=== PATIENT | female | born 1980 | race Caucasian/White ===

== ENCOUNTER → 2017-12-13 13:59 | Outpatient (CLI) | payer BC, SELFPAY ==
[2017-12-21 13:39] LABS: HPV HC, High Risk Negative (Negative); HPV Reflexed? NOT INDICATED
== END ==
PROVIDERS: Visit Provider Obstetrics & Gynecology
DX: Z12.4 Encounter for screening for malignant neoplasm of cervix (principal)
CPT/HCPCS: 88175; G0145

== ENCOUNTER → 2018-12-15 11:50 | Outpatient (CLI) | payer OTHER, SELFPAY ==
[2013-08-06 07:07] VITALS: BMI 32.9
== END ==
PROVIDERS: Visit Provider Obstetrics & Gynecology
DX: Z12.4 Encounter for screening for malignant neoplasm of cervix (principal)

== ENCOUNTER 2019-09-30 13:17 | Emergency (ER) | payer OTHER, SELFPAY ==
[2019-09-30 13:18] VITALS: BP 124/79; PULSE 95; RESP 16; TEMP 36.4; O2SAT 100; BMI 33.6
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
[2019-09-30 14:02] VITALS: RESP 16
== END 2019-09-30 14:03 | disposition home or self-care (01) ==
LOC: ED 13:55
PROVIDERS: Emergency Provider Emergency Medicine
DX: S90.31XA Contusion of right foot, initial encounter (principal); S90.811A Abrasion, right foot, initial encounter; E66.9 Obesity, unspecified; V89.2XXA Person injured in unspecified motor-vehicle accident, traffic, initial encounter
CPT/HCPCS: 73630; 99284

== ENCOUNTER 2021-07-03 14:16 | Outpatient (CLI) | payer OTHER, SELFPAY ==
[2021-07-03 16:25] LABS: Thyroid Stim Hormone (TSH) 1.69 uIU/mL (0.358-3.74)
== END 2021-07-03 23:59 | disposition home or self-care (01) ==
LOC: WOBLAB 14:17
PROVIDERS: Visit Provider Student in an Organized Health Care Education/Training Program
DX: N92.5 Other specified irregular menstruation (principal)
CPT/HCPCS: 36415; 84443

== ENCOUNTER 2021-07-31 16:24 | Outpatient (CLI) | payer OTHER, SELFPAY ==
--- NOTE | 2021-07-31 | EMB_PTH ---
PATIENT: ROOSEVELT CANTOR LOC: [facility] U#:[id number] AGE/SX: 40/F ROOM: RE07/31/[address]: Dr. Ananya Carlos DO : 1980 BED: DIS: 07/31/2021 SPEC #: [id number] RECD: 07/31/21 10:40 STATUS: TOM EL #: [id number] EMILY: 07/31/21 00:[address]: Ananya Carlos DEPT: SURGICAL PATHOLOGY RECD BY: Pradeep Brito ENTERED: 08/01/21 10:41 SP TYPE: ENDOM BX/C JEFF DR: No Primary Care Phys Tissues: Endometrium, NOS Procedures: Surgery Specimen Level IV HEADER OPERATION: Endometrial biopsy PRE-OP DIAGNOSIS: Abnormal uterine and vaginal bleeding TISSUE SUBMITTED: Endometrial biopsy MICROSCOPIC DIAGNOSIS Endometrium, biopsy: Proliferative endometrium. Rare strips of benign superficial endocervix. AM:kemi 08/02/2021 MICROSCOPIC DESCRIPTION Slides are reviewed. GROSS DESCRIPTION Received in fixative is one container labeled with the patient's name and designated endometrial biopsy. The specimen consists of multiple irregular and elongated fragments of light to dark sadler soft tissue that in aggregate measure 2.2 x 2 x 0.2 cm. The specimen is totally submitted in one cassette. / AM:kemi 08/01/2021 TC:5 CPT: 68886
== END 2021-07-31 23:59 | disposition home or self-care (01) ==
LOC: WOBLAB 16:25
PROVIDERS: Visit Provider Student in an Organized Health Care Education/Training Program
DX: N93.9 Abnormal uterine and vaginal bleeding, unspecified (principal)
CPT/HCPCS: 88305

== ENCOUNTER 2022-03-08 08:22 | Day surgery (SDC) | payer SELFPAY ==
[2022-03-05 15:16] LABS: Hematocrit 39.6 % (37-47); Hemoglobin 13.1 g/dL (12.0-15.0); Mean Corp Hgb Conc 33.1 g/dL (32-36); Mean Corpuscular Hgb 29.2 pg (27.0-32.0); Mean Corpuscular Volume 88.4 fL (81-99); Mean Platelet Vol. 10.9 fl (6.2-12.0); Platelet Count 211 K/mm3 (150-450); RBC Distribution Width CV 12.7 % (11.6-14.6); RBC Distribution Width SD 41.3 fl (35.1-43.9); Red Blood Count 4.48 M/mm3 (4.2-5.4); White Blood Count 6.4 K/mm3 (4.4-11.0)
[2022-03-08] VITALS (10 sets, daily range): BP systolic 87–106; BP diastolic 61–75; PULSE 65–83; RESP 15–18; TEMP 36.2–36.9; O2SAT 96–100; BMI 24.9
--- NOTE | 2022-03-08 | OV_PTH ---
PATIENT: ROOSEVELT CANTOR LOC: [facility] U#:[id number] AGE/SX: 41/F ROOM: RE03/08/[address]: Dr. Ananya Carlos DO : 1980 BED: DIS: 03/08/2022 SPEC #: [id number] RECD: 03/08/22 14:27 STATUS: TOM EL #: [id number] EMILY: 03/08/22 00:[address]: Ananya Carlos DEPT: SURGICAL PATHOLOGY RECD BY: Pradeep Brito ENTERED: 03/09/22 08:56 SP TYPE: OVARY OTHR DR: No Primary Care Phys Tissues: Right ovary Procedures: Surgery Specimen Level IV HEADER OPERATION: Laparoscopic right oophorectomy and cystectomy, left ovarian PRE-OP DIAGNOSIS: Bilateral ovarian cysts TISSUE SUBMITTED: Right ovary and cyst wall, left ovarian cyst wall MICROSCOPIC DIAGNOSIS Right ovary and cyst, oophorectomy: Follicular and corpus luteal cysts. Left ovarian cyst wall, excision: Fragments of corpus luteal cyst. AM:kemi 03/12/2022 MICROSCOPIC DESCRIPTION Slides are reviewed. GROSS DESCRIPTION Received in fixative is one container labeled with the patient's name and designated left ovarian cyst wall, right ovarian cyst wall. The specimen consists of two fragments. One fragment consists of an open cystic structure measuring 5.5 x 3 x 1 cm. The cyst wall lining averages 0.2 cm in thickness. The external surface is inked in black ink. The specimen is serially sectioned and claims customer service representative sections are submitted in cassette 1. The second fragment consists of a smooth, glistening, sadler-white ovary measuring 4 x 3 x 2.2 cm and weighing 14.8 gm. The external surface is inked and the specimen is serially sectioned to reveal multiple cysts ranging in size from 0.2 to 1.2 cm and containing clear fluid. Hotel Desk Clerk sections from this ovary are submitted in cassettes 2-4. / AM:kemi 03/09/2022 TC:5 CPT: 25264 x2
--- NOTE | 2022-03-08 07:07 | PCM.HP.BLA ---
History and Physical Date of Admission: 03/08/22 HPI: Assessment/plan: 41-year-old plan for laparoscopic bilateral ovarian cystectomy for ovarian cysts. Denies headache, vision changes, chest pain or shortness of breath, nausea or vomiting, diarrhea or constipation, fevers or chills. Medical history: Denies Surgical history: Denies Family history: Denies, adopted Allergies: No known drug allergies Medications: Sprintec Social history: Denies tobacco, alcohol, drug use Review of system: Negative otherwise stated above Physical exam: BP 126/70, Weight 156 lb General: No acute distress HEENT: Normocephalic/atraumatic, PERRLA Cardiac: Regular rate and rhythm Lungs: Clear to auscultation bilaterally Abdomen: Soft, nontender, nondistended Extremities: No edema Musculoskeletal: Strength 5 out of 5 throughout all extremities Neurologic: Cranial nerves II through XII grossly intact, no focal deficits Assessment/plan: 41-year-old plan for laparoscopic bilateral ovarian cystectomy for ovarian cysts. All risk, benefits, terms discussed the patient. Risk include but are not limited to: Risk of bleeding to the point transfusion, infection, injury to surrounding tissue including bowel/bladder/major abdominal vessels, VTE, ICU admission. Patient aware and consented
[2022-03-08] MEDS: Lactated Ringers 1,000 ML 15 ML IV ×3 (08:35→12:47)
[2022-03-08 08:49] LABS: Internal QC Validated? YES +Cl - CLEAR BKGD; Pregnancy, Urine Negative Negative
--- NOTE | 2022-03-08 10:36 | OP.PCM_ITS ---
Report of Operation Date of Procedure: 03/08/22 Pre-Operative Diagnosis: Bilateral ovarian cysts Post-Operative Diagnosis: Bilateral ovarian cysts Surgery/Procedure Performed:: Laparoscopic left ovarian cystectomy, right oophorectomy Description of Surgical Findings:: Normal-appearing external genitalia. Moderate uterine descensus. Friable cervical ectropion. Normal-appearing bilateral fallopian tubes. Enlarged left ovary secondary to large fluid-filled ovarian cyst. Right ovary slightly enlarged with solid cyst encompassing entire ovary. Filmy adhesion colon to right abdominal sidewall. Type of Anesthesia: General Specimen's removed: Left ovarian cyst. Right ovary. Estimated Blood Loss (mL): 15 cc Fluids Replaced: 1500cc Description of Procedure: Indications/risk/benefits: 41-year-old female with persistent over the ovarian cyst bilaterally plan for laparoscopic ovarian cystectomies. All risk, benefits, alternatives were discussed with patient. Risk include but not limited to: Risk of bleeding twin transfusion, infection, injury to surrounding tissue including bowel/bladder/major abdominal vessels, VTE, ICU admission. Patient were consented. Procedure: Patient taken to the operating room placed under general anesthesia. Patient placed in the dorsal lithotomy position and prepped and draped in the usual sterile fashion. Pulliam catheter placed. Weighted speculum placed in posterior vagina and Willams retractor used to visualize cervix. Anterior lip of cervix grasped with single-tooth tenaculum. Cervix sequentially dilated and sounded to 9 cm. Uterine manipulator placed. Gloves were changed and attention turned to the anterior abdominal wall. 5 mm transverse infraumbilical incision made with scalpel and trocar placed under direct visualization. Right (5 mm) and left (8 mm) lower quadrant trochars placed under direct visualization after abdomen was insufflated. Inspection of abdominal cavity completed with findings above. Left ovary grasped and cyst incised and removed using LigaSure device. Drained clear yellow fluid. Cyst wall placed anterior to the uterus momentarily. Unable to separate remaining portion of cyst wall from ovarian tissue. Ovary hemostatic. Right ovary then inspected. Solid ovarian cyst noted on this side. Additional left trocar was placed to assist in excision of right ovarian cyst. Medial area of ovary was incised with monopolar scissors dermoid contents extruded. Attempted multiple times with both monopolar sc issors and LigaSure device to separate ovarian cyst from normal ovarian tissue. Unable to separate cyst from normal ovarian tissue. At that time decision to remove ovary in its entirety was made. LigaSure device utilized to remove ovary. Hemostasis noted. Right ovary and left ovarian cyst wall placed into Endo Catch bag. This was brought to the left trocar. Bag was brought to the level of the skin. Left cyst wall removed from bag using RP clamp. Attempted to incise right ovary and remove portions at a time from the Endo Catch bag. Due to solid nature was unable to. Incision extended. Endo Catch bag containing right ovary removed from the abdominal cavity. Pelvis inspected again. Pelvis suction irrigated copiously. Hemostatic. Ratna placed in the pelvis and along left ovary. Trochars removed and abdomen desufflated. Left lower quadrant fascia closed with a running stitch. Skin closed with subcuticular stitch and skin glue. At the end of the procedure all needle, lap, sponge counts were correct. UOP: 200cc clear urine Complications none
--- NOTE | 2022-03-08 10:36 | DCINST_ITS ---
Discharge Instructions Diet Discharge Diet: No restrictions Activity Discharge Activity: Return to Normal Activity and May Shower May resume sexual activity in: 2 weeks Weight Bearing Status: Weight bearing as tolerated Lifting Restrictions: No greater than 15 pounds Dressing / Incision Call your doctor if your incision/area has: Continuous Slow Oozing, Increased Pain/ Swelling, Increased Redness and Foul Smelling Discharge Call your doctor if you observe: Fever of 101 or Higher, Inability to urinate, Using more than 1 pad per hour, Shortness of breath, Chest pain, Calf discomfort and Uncontrolled pain Cleanse incision/area with: Soap & Water and Keep Dressing Clean & Dry Follow Up Care Please Follow Up With: Ananya Carlos DO When: 2 weeks post operative visit. Test Results: Test results from this visit will be discussed in further detail at your follow- up appointment, if applicable. Discharge Plan Admission Primary Reason for Your Visit: Laparoscopic ovarian cystectomy, right oophorectomy Attending Provider: Ananya Carlos Primary Care Provider: Care Physician,Sherley Primary Discharge Orders/Prescriptions Prescriptions: New oxycodone 5 mg tablet 5 mg PO Q6H PRN (Reason: pain (scale score 7-10)) 5 Days Qty: 24 0RF Continued aloe vera Capsule 1 cap PO DAILY norethindrone ac-eth estradiol [Nery 06/08 ()] 1-20 mg-mcg Tablet 1 tab PO DAILY Referrals / Follow Up: Care Physician,No Primary [Primary Care Provider] - Disposition Disposition (needs filled in before D/C Order can be placed): Home, Self Care
== END 2022-03-08 15:00 | disposition home or self-care (01) ==
LOC: SDC 08:26 → AC 08:27
PROVIDERS: Anesthesiology; Referring Provider Student in an Organized Health Care Education/Training Program; Visit Provider Student in an Organized Health Care Education/Training Program
PROC: (CPT 58661; principal; 2022-03-08 09:45)
DX: N83.11 Corpus luteum cyst of right ovary (principal); N83.12 Corpus luteum cyst of left ovary
CPT/HCPCS: 58662; 58661; 36415; 81025; 85027; 86850; 86900; 86901; 88305; J7120; J2405

== ENCOUNTER → 2022-05-23 | Outpatient (CLI) | payer OTHER, SELFPAY ==
[2022-05-27 16:28] LABS: HPV APTIMA, High Risk Negative (Negative)
== END | disposition home or self-care (01) ==
LOC: WOBLAB 12:07
PROVIDERS: Visit Provider Student in an Organized Health Care Education/Training Program
DX: Z12.4 Encounter for screening for malignant neoplasm of cervix (principal)
CPT/HCPCS: 87624; 88175; G0145

== ENCOUNTER → 2022-07-20 | Outpatient (CLI) | payer OTHER, SELFPAY ==
[2022-07-20 15:25] LABS: Absolute Lymphocyte Count 2.08 X10^3/uL (0.83-4.51); Absolute Neutrophil Count 8.1 X10^3/uL (2.0-7.7); Basophil# 0.05 X10^3/uL; Basophil% 0.4 % (0-1); Eosinophil# 0.14 X10^3/uL; Eosinophils% 1.2 % (0-5); Hematocrit 40.3 % (37-47); Hemoglobin 12.9 g/dL (12.0-15.0); Lymphocyte # 2.08 X10^3/ul (0.83-4.51); Lymphocyte % 18.5 % (19-41); Mean Corpuscular Hgb 28.4 pg (27.0-32.0); Mean Corpuscular Volume 88.6 fL (81-99); Mean Platelet Vol. 11.1 fl (6.2-12.0); Monocyte# 0.79 X10^3/uL; NRBC Flagged by Analyzer 0 % (0-5); Neutrophil # 8.11 X10^3/uL (2.7-7.7); Neutrophil % 72.5 % (47-70); Platelet Count 247 K/mm3 (150-450); RBC Distribution Width CV 12.8 % (11.6-14.6); RBC Distribution Width SD 41.4 fl (35.1-43.9); Red Blood Count 4.55 M/mm3 (4.2-5.4); White Blood Count 11.2 K/mm3 (4.4-11.0)
[2022-07-20 17:17] LABS: HIV - WCH Non-Reactive (Nonreactive); Hepatitis B Surface Antigen Non-Reactive (Nonreactive); Hepatitis C Antibody Non-Reactive (Nonreactive); Rubella IgG Reactive (Nonreactive); Syphilis Antibodies Non-reactive
[2022-07-22 14:06] LABS: V-Zoster IgG (Immunity) 1308 index (Immune >165)
== END | disposition home or self-care (01) ==
LOC: WOBLAB 14:29
PROVIDERS: Visit Provider Student in an Organized Health Care Education/Training Program
DX: Z34.81 Encounter for supervision of other normal pregnancy, first trimester (principal)
CPT/HCPCS: 36415; 85025; 86703; 86762; 86780; 86787; 86803; 87086; 87088; 87340

== ENCOUNTER → 2022-11-09 | Outpatient (CLI) | payer OTHER, SELFPAY ==
[2022-11-09 10:55] LABS: Absolute Lymphocyte Count 1.63 X10^3/uL (0.83-4.51); Absolute Neutrophil Count 6.2 X10^3/uL (2.0-7.7); Basophil# 0.03 X10^3/uL; Basophil% 0.3 % (0-1); Eosinophil# 0.11 X10^3/uL; Eosinophils% 1.3 % (0-5); Hematocrit 36.4 % (37-47); Hemoglobin 11.9 g/dL (12.0-15.0); Lymphocyte # 1.63 X10^3/ul (0.83-4.51); Lymphocyte % 18.9 % (19-41); Mean Corp Hgb Conc 32.7 g/dL (32-36); Mean Corpuscular Volume 88.6 fL (81-99); Mean Platelet Vol. 10.7 fl (6.2-12.0); Monocyte# 0.59 X10^3/uL; Monocyte% 6.8 % (0-10); NRBC Flagged by Analyzer 0 % (0-5); Neutrophil # 6.19 X10^3/uL (2.7-7.7); Neutrophil % 71.9 % (47-70); Platelet Count 162 K/mm3 (150-450); RBC Distribution Width CV 12.8 % (11.6-14.6); RBC Distribution Width SD 41.9 fl (35.1-43.9); Red Blood Count 4.11 M/mm3 (4.2-5.4); White Blood Count 8.6 K/mm3 (4.4-11.0)
[2022-11-09 11:50] LABS: Syphilis Antibodies Non-reactive
== END | disposition home or self-care (01) ==
LOC: WOBLAB 10:45
PROVIDERS: Visit Provider Student in an Organized Health Care Education/Training Program
DX: Z34.82 Encounter for supervision of other normal pregnancy, second trimester (principal)
CPT/HCPCS: 36415; 85025; 86780

== ENCOUNTER 2023-02-22 19:00 | Inpatient (IN) | payer OTHER, SELFPAY ==
--- NOTE | 2023-02-22 08:30 | PCM.HP.OB ---
HPI - General General Date of Admission: 02/22/23 Date of Service: 02/22/23 Chief Complaint: induction HPI Narrative ROOSEVELT CANTOR, is a 42 F who presents for scheduled induction for AMA and A1GDM at 39w0d. 2 prior vaginal deliveries that were uncomplicated. She has had gestational diabetes in this that is been well controlled with diet. She offers no complaints this morning. No contractions, vaginal bleeding, leaking fluid. Good movement. PFSH [facility] Medical History (Updated 02/22/23 @ 08:[address] Bozena Randall, DO) Back pain Hx of fracture of finger Leg cramps Non-smoker Wears contact lenses Wears glasses Home Medications aloe vera 1 cap PO DAILY 03/06/22 [History Last Taken Unknown] norethindrone acetate 1 mg-ethinyl estradiol 20 mcg tablet (Nery) 1 tab PO DAILY 03/06/22 [History Last Taken Unknown] oxycodone 5 mg tablet 5 mg PO Q6H PRN pain (scale score 7-10) 5 days #24 tabs 03/08/22 [Rx Last Taken Unknown] Allergy/AdvReac Type Severity Reaction Status Date / Time No Known Allergies Allergy Verified 03/08/22 08:56 Social History Smoking Status: Never smoker History Elective abortions Hx Para 1 Spontaneous abortions Hx # Term Pregnancies Ectopic pregnancies Hx # Pregnancies Multiple births # of living children NST FHR Rate Baby A FHR Category:: Category I Physical Exam Const alert and no apparent distress General Appearance: comfortable Labs Labs Labs: Blood Type B POSITIVE Antibody Screen NEGATIVE Hct 36.4 % (37-47) L Hgb 11.9 g/dL (12.0-15.0) L Syphilis Total Ab Non-reactive VZV IgG Antibody 1308 index (Immune >165) Rubella IgG Antibody Reactive (Nonreactive) Hep Bs Antigen Non-Reactive (Nonreactive) HIV 1&2 Antibody Non-Reactive (Nonreactive) Glucose 1 Hr 50 gm 119 mg/dL (70-140) Group B Strep DNA Negative (Negative) Rhogam given: No Miscellaneous Test Assessment & Plan (1) 39 weeks gestation of : PLAN: Patient presents for scheduled induction of labor at 39 weeks gestation for gestational diabetes and advanced maternal age. Will start Pitocin per protocol. Diabetic protocol. Patient plans on epidural for pain control. GBS negative. Pelvis adequate and proven to 8 pounds 8 ounces. Estimated weight expected to be less than 4500 g. Anticipate a vaginal delivery. (2) AMA (advanced maternal age) multigravida 35+: (3) GDM (gestational diabetes mellitus), class A1: (4) with care elsewhere: PLAN: Late transfer of care from [place]
--- NOTE | 2023-02-22 11:57 | NURSING ---
pt was an induction but due active labors pt will be coming in at 7pm unless staffing allows to come in earlier. per dr patrick
[2023-02-22 19:45] VITALS: BMI 33.6
[2023-02-22 19:49] VITALS: BP 128/83; PULSE 102; TEMP 36.1; O2SAT 98
[2023-02-22] MEDS: Lactated Ringers 1,000 ML 50 ML IV (20:00)
[2023-02-22 20:28] LABS: Bedside Glucose 150 mg/dL (74-106)
[2023-02-22 20:29] LABS: Absolute Lymphocyte Count 2.35 X10^3/uL (0.83-4.51); Absolute Neutrophil Count 6.4 X10^3/uL (2.0-7.7); Basophil# 0.06 X10^3/uL; Basophil% 0.6 % (0-1); Hematocrit 36.3 % (37-47); Hemoglobin 11.5 g/dL (12.0-15.0); Lymphocyte # 2.35 X10^3/ul (0.83-4.51); Lymphocyte % 23.8 % (19-41); Mean Corp Hgb Conc 31.7 g/dL (32-36); Mean Corpuscular Hgb 27.1 pg (27.0-32.0); Mean Corpuscular Volume 85.4 fL (81-99); Mean Platelet Vol. 12.6 fl (6.2-12.0); Monocyte# 0.82 X10^3/uL; Monocyte% 8.3 % (0-10); NRBC Flagged by Analyzer 0 % (0-5); Neutrophil # 6.43 X10^3/uL (2.7-7.7); Neutrophil % 65.3 % (47-70); Platelet Count 167 K/mm3 (150-450); RBC Distribution Width CV 13.5 % (11.6-14.6); RBC Distribution Width SD 42.1 fl (35.1-43.9); Red Blood Count 4.25 M/mm3 (4.2-5.4); White Blood Count 9.9 K/mm3 (4.4-11.0)
[2023-02-22] MEDS: Oxytocin 15 Units/NS 250ml 15 UNITS/250 ML IV.SOLN 2 UNITS IV (20:38)
[2023-02-22 21:02] LABS: Syphilis Antibodies Non-reactive
[2023-02-22 21:03] VITALS: TEMP 36.8
[2023-02-22 21:04] VITALS: BP 134/75; PULSE 88; O2SAT 97
[2023-02-22 21:40] LABS: Bedside Glucose 111 mg/dL (74-106)
[2023-02-22 22:10] VITALS: BP 119/75; PULSE 76; TEMP 36.3; O2SAT 97
[2023-02-22 22:34] LABS: Bedside Glucose 92 mg/dL (74-106)
[2023-02-22 23:17] VITALS: BP 122/78; PULSE 81; TEMP 36.3; O2SAT 98
[2023-02-22 23:54] VITALS: BP 118/79; PULSE 79; TEMP 36.2; O2SAT 98
[2023-02-23] VITALS (58 sets, daily range): BP systolic 99–140; BP diastolic 53–88; PULSE 75–106; RESP 18; TEMP 36.1–37; O2SAT 96–100
[2023-02-23 02:49] LABS: Bedside Glucose 75 mg/dL (74-106)
[2023-02-23] MEDS: LACTATED RINGERS 500 ML 999 ML IV (03:30)
[2023-02-23] MEDS: fentaNYL-bupivacaine (epidural) 100 ML BAG EPIDURAL ×3 (05:13→15:24)
[2023-02-23 06:18] LABS: Bedside Glucose 85 mg/dL (74-106)
[2023-02-23] MEDS: Lactated Ringers 1,000 ML 200 ML IV ×2 (06:45→11:32)
--- NOTE | 2023-02-23 08:36 | PCM.PN.BLA ---
Progress Note At bedside to check on pt. Comfortable with epidural. Assessment & Plan Assessment/Plan (1) with care elsewhere: PLAN: Cvx 5 cm dilated and head well applied. AROM performed in usual fashion with return of clear fluid. IUPC placed. Category 1 tracing. (2) GDM (gestational diabetes mellitus), class A1: (3) AMA (advanced maternal age) multigravida 35+: (4) 39 weeks gestation of :
[2023-02-23] MEDS: Oxytocin 15 Units/NS 250ml 15 UNITS/250 ML IV.SOLN 10 UNITS IV (09:29)
[2023-02-23 10:03] LABS: Bedside Glucose 81 mg/dL (74-106)
[2023-02-23] MEDS: 0.9% Saline Lock 10 ML Syringe IV (11:31)
[2023-02-23 14:06] LABS: Bedside Glucose 95 mg/dL (74-106)
[2023-02-23 15:54] LABS: Bedside Glucose 68 mg/dL (74-106)
--- NOTE | 2023-02-23 16:22 | PCM.OPRPT ---
Problems Associated Problem List Diagnoses (1) with care elsewhere: (2) GDM (gestational diabetes mellitus), class A1: (3) AMA (advanced maternal age) multigravida 35+: (4) 39 weeks gestation of : Report of Operation Date of Procedure: 02/23/23 Pre-Operative Diagnosis: 39 week gestation, care elsewhere, AMA, A1GDM Post-Operative Diagnosis: As above Surgery/Procedure Performed:: Repair of first degree laceration Description of Surgical Findings:: VFI in NIKITA position with loose nuchal cord x 1 and apgars 8, 9. Normal appearing placenta with 3VC. Surgeon: Bozena Randall Type of Anesthesia: Epidural Special Medications: None Specimen's removed: Placenta Drains: Pulliam Estimated Blood Loss (mL): 300 Fluids Replaced: N/A Description of Procedure: The patient was complete and pushing. The head of the infant delivered in left occiput anterior position. A loose nuchal cord x1 was noted but the anterior shoulder delivered spontaneously, followed by the posterior shoulder and body of the therefore the vigorous viable female was delivered through the loose nuchal cord x1. The infant was delivered without any force, traction, or delay. The was placed on the maternal abdomen and the cord was clamped and cut after a 60 sec delay by the father of the baby. The placenta was delivered with fundal massage. The placenta was noted to be normal-appearing and intact with a three-vessel cord. Uterus was explored x1. A first-degree vaginal laceration was repaired with 3-0 Vicryl. A vaginal sweep was performed. Sharp and sponge counts were correct. Fundus was firm and bleeding hemostatic. Grafts/Implants Used: None Complications None Admit VTE Documentation VTE Present on Admission: No
[2023-02-23] MEDS: Oxytocin 15 Units/NS 250ml 15 UNITS/250 ML IV.SOLN 83 UNITS IV (16:40)
[2023-02-23] MEDS: Acetaminophen 500 MG Tablet 1000 MG PO (17:09)
[2023-02-23 18:56] LABS: Bedside Glucose 73 mg/dL (74-106)
[2023-02-24] VITALS (7 sets, daily range): BP systolic 109–119; BP diastolic 63–75; PULSE 84–92; RESP 16; TEMP 36.1–36.4; O2SAT 98–99
[2023-02-24] MEDS: Ibuprofen 600 MG Tablet PO ×2 (02:23→15:16)
[2023-02-24 05:52] LABS: Bedside Glucose 76 mg/dL (74-106)
--- NOTE | 2023-02-24 10:35 | DCINST_ITS ---
Discharge Instructions Diet Discharge Diet: No restrictions Activity Discharge Activity: May Shower May resume sexual activity in: 6 weeks (nothing in vagina and no soaking in water) Ice area for (Minutes): 15 Weight Bearing Status: Weight bearing as tolerated Lifting Restrictions: nothing heavier than baby Dressing / Incision Call your doctor if you observe: Fever of 101 or Higher, Coldness, Increased Pain, Numbness or Tingling, Change in Color, Inability to urinate, Inability to have a bowel movement, Using more than 1 pad per hour, Shortness of breath, Dizziness, Fainting spells, Swelling in the ankles, Chest pain, Increased palpitations (irregular heartbeat), Calf discomfort and Uncontrolled pain Cleanse incision/area with: Soap & Water Follow Up Care Please Follow Up With: Bozena Randall DO When: 1-2 weeks for early visit 6 weeks for exam Test Results: Test results from this visit will be discussed in further detail at your follow- up appointment, if applicable. Discharge Plan Admission Admit Date/Time: 02/22/23 19:00 Primary Reason for Your Visit: delivery Attending Provider: Bozena Randall Primary Care Provider: Kaleb Kimble Instructions Patient Instructions: After a Vaginal Discharge Orders/Prescriptions Prescriptions: Discontinued aspirin 81 mg tablet,chewable 81 mg PO DAILY Referrals / Follow Up: Kaleb Kimble MD [Primary Care Provider] - Disposition Disposition (needs filled in before D/C Order can be placed): Home, Self Care
--- NOTE | 2023-02-24 10:36 | PCM.PN.OB ---
Subjective Subjective Patient is doing well and offers no complaints. She desires discharge today. Pain is well controlled. She is ambulating and voiding without difficulty. She is tolerating regular diet without nausea or vomiting. She denies chest pain, shortness of breath, lightheadedness, dizziness, leg pain. Lochia is normal. She is breast-feeding without complaints. Objective Data Objective Data Vital Signs: Vital Signs Temp Pulse Resp BP Pulse Ox O2 Del Method 97.6 F L 87 16 110/75 99 Room Air 02/24/23 08:52 02/24/23 08:52 02/24/23 08:52 02/24/23 08:52 02/24/23 08:52 02/24/23 08:52 Oxygen Delivery Method Room Air Weight: 202 lb Body Mass Index (BMI) 33.6 Intake & Output: Intake and Output for Last 24 Hours 02/22/23 02/23/23 02/24/23 23:59 23:59 23:59 Intake Total 18.83 / 18.83 4408.10 / 4408.10 Output Total 801 / 801 600 / 600 Balance 18.83 / 18.83 3607.10 / 3607.10 -600 / -600 Lab / Micro Data 02/22/23 20:00 Labs: Laboratory Results - last 24 hr 02/23/23 13:25: POC Glucose 95 02/23/23 15:35: POC Glucose 68 L 02/23/23 18:22: POC Glucose 73 L 02/24/23 05:31: POC Glucose 76 Physical Exam Const alert and no apparent distress General Appearance: comfortable HEENT normocephalic Resp normal respiratory effort GI soft to palpation, non-tender and non-distended Extremity no calf tenderness Assessment & Plan (1) Vaginal delivery: PLAN: Patient is day 1 from a spontaneous vaginal delivery. Patient and are doing well. Discharge instructions were reviewed.
--- NOTE | 2023-02-24 10:38 | PCM.DC.SUM ---
Providers Date of Admission: 02/22/23 Date of Discharge: 02/24/23 Primary Care Physician: Dr. Kaleb Kimble MD Reason For Visit: VAGINAL DELIVERY Diagnosis Discharge Diagnosis (1) Vaginal delivery: Status: Acute Code(s): O80 - Encounter for full-term uncomplicated delivery Plan: Patient is day 1 from a spontaneous vaginal delivery. Patient and are doing well. Discharge instructions were reviewed. Hospital Course Summary of Care Provided Hospital Course: Patient presented to the hospital as a at 39 weeks gestation for an induction of labor for gestational diabetes as well as advanced maternal age. She had a spontaneous vaginal delivery. See operative report for details. course was routine and she was discharged home to have follow-up in the office. Weight / BMI Weight Weight: 202 lb Body Mass Index (BMI) 33.6 ABG / Lab / Microbiology Data 02/22/23 20:00 Laboratory: Laboratory Results - last 24 hr 02/23/23 13:25: POC Glucose 95 02/23/23 15:35: POC Glucose 68 L 02/23/23 18:22: POC Glucose 73 L 02/24/23 05:31: POC Glucose 76 D/C Instructions Discharge Diet: No restrictions May resume sexual activity in: 6 weeks (nothing in vagina and no soaking in water) Ice area for (Minutes): 15 Weight Bearing Status: Weight bearing as tolerated Call your doctor if you observe: Fever of 101 or Higher, Coldness, Increased Pain, Numbness or Tingling, Change in Color, Inability to urinate, Inability to have a bowel movement, Using more than 1 pad per hour, Shortness of breath, Dizziness, Fainting spells, Swelling in the ankles, Chest pain, Increased palpitations (irregular heartbeat), Calf discomfort and Uncontrolled pain Cleanse incision/area with: Soap & Water Please Follow Up With: Bozena Randall DO When: 1-2 weeks for early visit 6 weeks for exam Meaningful Use Info Meaningful Use Diagnoses (Choose all that apply): None applicable Discharge Plan Admission Admit Date/Time: 02/22/23 19:00 Primary Reason for Your Visit: delivery Attending Provider: Bozena Randall Primary Care Provider: Kaleb Kimble Instructions Patient Instructions: After a Vaginal Discharge Orders/Prescriptions Prescriptions: Discontinued aspirin 81 mg tablet,chewable 81 mg PO DAILY Referrals / Follow Up: Kaleb Kimble MD [Primary Care Provider] - Disposition Disposition (needs filled in before D/C Order can be placed): Home, Self Care
[2023-02-24] MEDS: Acetaminophen 500 MG Tablet 1000 MG PO (12:19)
== END 2023-02-24 18:55 | disposition home or self-care (01) | DRG 807 ==
PROVIDERS: Obstetrics & Gynecology; Admitting Provider Obstetrics & Gynecology; PCP Internal Medicine; Referring Provider Obstetrics & Gynecology; Visit Provider Obstetrics & Gynecology
DX: O24.420 Gestational diabetes mellitus in childbirth, diet controlled (principal); Z37.0 Single live birth; O69.81X0 Labor and delivery complicated by cord around neck, without compression, not applicable or unspecified; O70.0 First degree perineal laceration during delivery; Z3A.39 39 weeks gestation of pregnancy
CPT/HCPCS: 59025; 59050; 82962; 85025; 86780; 86850; 86900; 86901; 99221; J7120; A4216; G0378

== ENCOUNTER → 2024-01-23 | Outpatient (CLI) | payer OTHER, SELFPAY | END | disposition home or self-care (01) | PROVIDERS: PCP Internal Medicine; Referring Provider Physician Assistant Surgical; Visit Provider Physician Assistant Surgical | DX: N39.0 Urinary tract infection, site not specified (principal) | CPT/HCPCS: 87077; 87086; 87088; 87186 ==